=== PATIENT | male | born 1970 | race Caucasian/White ===

== ENCOUNTER 2023-06-24 15:54 | Emergency (ER) | payer OTHER, BC ==
[2023-06-24] MEDS: Lidocaine 1% 5 ML VIAL INJECT ONE (16:31)
[2023-06-24] MEDS: Bacitracin Oint 1 GM U/D Packet TOP ONE (16:59)
== END 2023-06-24 17:05 | disposition home or self-care (01) ==
LOC: LL.ED 15:54
DX: S81.812A Laceration without foreign body, left lower leg, initial encounter (principal); Z79.899 Other long term (current) drug therapy; W20.8XXA Other cause of strike by thrown, projected or falling object, initial encounter; Y93.39 Activity, other involving climbing, rappelling and jumping off
CPT/HCPCS: 12002; 99282; 99283; J3490